=== PATIENT | female | born 1965 | race Caucasian/White ===

== ENCOUNTER → 2016-10-18 | Outpatient (CLI) | payer BC ==
[2016-05-18 17:04] VITALS: BP 163/78
--- NOTE | 2016-10-18 16:39 | RAD ---
Examination: X-rays of the right ankle. Clinical history: Injury right ankle, fell in bathroom. Technique: Three views of the right ankle were obtained. Comparison: None available. Findings: No acute fracture, dislocation, or destructive bony lesion is noted. Bony spurs are noted at the plantar and posterior aspects of the calcaneus, consistent with enthesop athy. No soft tissue abnormality is noted. Impression: 1. No acute fracture or dislocation Reported By:
--- NOTE | 2016-10-18 16:41 | RAD ---
HISTORY: Right knee pain, fall Study: Three views right knee Comparison: None Findings: There are moderate to advanced tricompartmental osteoarthritic changes present, most prominent in th e patellofemoral compartment. No acute fracture or dislocation. The soft tissues are unremarkable. No joint effusion. IMPRESSION: 1. Moderate to advanced osteoarthritic changes. No acute fracture identified. Reported By:
== END ==
LOC: RAD 15:25
PROVIDERS: ATTEND Obstetrics & Gynecology Obstetrics
DX: S89.81XA Other specified injuries of right lower leg, initial encounter (principal); S99.811A Other specified injuries of right ankle, initial encounter; X58.XXXA Exposure to other specified factors, initial encounter; M79.604 Pain in right leg
CPT/HCPCS: 73560; 73610